=== PATIENT | female | born 1970 | race Caucasian/White ===

== ENCOUNTER 2016-07-12 15:40 | Emergency (ER) | payer BC ==
[~2016-07-12] VITALS: Ht 160 cm; Wt 95.7 kg
[~2016-07-12 15:40] MED LIST: BROMFED DM COU118 ML PO; BUPROPION XL300 MG PO; CLONAZEPAM1 MG PO; EFFEXOR75 MG PO; FLEXERIL10 MG PO; FLUOXETINE HCL40 MG PO; KLONOPIN0.5 M1 PO; LAMOTRIGINE150 MG PO; LUNESTA3 MG PO; QUETIAPINE FUM100 MG PO; ULTRAM50 MG PO; VIIBRYD40 MG PO; VITAMIN D5000 UNIT PO; ZOLOFT50 MG PO
[2016-07-12 18:31] LABS: ADD MIUA? YES; BILIRUBIN SMALL; BLOOD NEGATIVE; COLOR DK YELLOW ((YELLOW)); GLUCOSE (STRIP) NEGATIVE; KETONES NEGATIVE; LEUKOCYTES TRACE; NITRITE NEGATIVE; PROTEIN (STRIP) TRACE; SPECIFIC GRAVITY 1.032 (1.000-1.030)
[2016-07-12 19:00] LABS: BACTERIA 1+; CASTS NONE SEEN /LPF; CRYSTALS NONE SEEN; EPITHELIAL CELLS 1+; MUCUS 2+; RED BLOOD CELLS RARE /HPF (0-5); WHITE BLOOD CELLS 0-5 /HPF (0-5)
[2016-07-12 19:05] LABS: INFLUENZA A VIRAL ANTIGEN NEGATIVE; INFLUENZA B VIRAL ANTIGEN NEGATIVE
[2016-07-12] MEDS ORDERED: MUCINEX D ER T1 EACH PO (19:39)
[2016-07-12] MEDS ORDERED: TESSALON PERLE100 MG PO (19:39)
[2016-07-12] MEDS ORDERED: MOTRIN800 MG PO (19:39)
[2016-07-12] MEDS ORDERED: FLONASE16 G1 BOTH NARES (19:40)
[2016-07-12 19:50] VITALS: BP 125/92
== END 2016-07-12 19:51 | disposition home or self-care (01) ==
LOC: EME 15:40
PROVIDERS: Physician Assistant
DX: J06.9 Acute upper respiratory infection, unspecified (principal); E86.0 Dehydration; H65.03 Acute serous otitis media, bilateral; Z87.891 Personal history of nicotine dependence
CPT/HCPCS: 71020; 81003; 87502; 99281; 99285; J7512

== ENCOUNTER 2017-03-30 13:00 | Emergency (ER) | payer BC ==
[~2017-03-30] VITALS: Ht 162.6 cm; Wt 92.3 kg
[~2017-03-30 13:00] MED LIST changes: +FLONASE16 G1 BOTH NARES; +MOTRIN800 MG PO; +MUCINEX D ER T1 EACH PO; +TESSALON PERLE100 MG PO
[2017-03-30] MEDS ORDERED: HYDROCHLOROTHIA25 MG PO (13:31)
[2017-03-30] MEDS ORDERED: CYMBALTA60 MG PO (13:31)
[2017-03-30] MEDS ORDERED: LIDODERM 5% P1 PATCH TD (14:16)
[2017-03-30] MEDS ORDERED: NAPROSYN500 MG PO (14:16)
[2017-03-30] MEDS ORDERED: FLEXERIL10 MG PO (14:16)
[2017-03-30 14:38] VITALS: BP 140/88
== END 2017-03-30 14:39 | disposition home or self-care (01) ==
LOC: EME 13:00
DX: S29.012A Strain of muscle and tendon of back wall of thorax, initial encounter (principal); S46.911A Strain of unspecified muscle, fascia and tendon at shoulder and upper arm level, right arm, initial encounter; X58.XXXA Exposure to other specified factors, initial encounter; Z98.1 Arthrodesis status; F32.9 Major depressive disorder, single episode, unspecified; Z87.891 Personal history of nicotine dependence
CPT/HCPCS: 99281; 99283